=== PATIENT | female | born 2000 | race Two or more races ===

== ENCOUNTER 2024-05-07 11:55 | Inpatient (IN) | payer OTHER ==
[~2024-05-07] VITALS: Ht 175.3 cm; Wt 117.9 kg
[2024-05-07] MEDS ORDERED: ACID REDUCER20 M1 PO (12:36)
[2024-05-07] MEDS ORDERED: KETOROLAC TROMETHAMINE 30 MG VIAL IM STA (14:54)
[2024-05-07] MEDS ORDERED: CEFTRIAXONE SODIUM 1,000 MG VIAL IM STA (14:56)
[2024-05-07] MEDS ORDERED: KETOROLAC TROMETHAMINE 30 MG VIAL ONE (15:21)
[2024-05-07] MEDS ORDERED: CEFTRIAXONE SODIUM 1,000 MG VIAL ONE (15:22)
[2024-05-07 15:41] LABS: HEMATOCRIT 34.6 % (36.0-45.00); HEMOGLOBIN 10.9 g/dL (12.0-15.00); MEAN CORPUSCULAR HEMOGLOBIN 21.6 pg (27.00-32.0); MEAN CORPUSCULAR HGB CONC 31.4 g/dl (32.0-36.0); PLATELET COUNT 300 K/uL (150-450); RED BLOOD COUNT 5.03 M/uL (4.00-6.00); RED CELL DISTRIBUTION WIDTH 17.9 % (11.5-14.5)
[2024-05-07 16:38] LABS: MEAN CELL VOLUME 68.8 fL (80.00-100.00)
[2024-05-07 19:28] LABS: ALBUMIN 3.1 gm/dL (3.4-5.0); BILIRUBIN TOTAL 0.42 mg/dL (0.3-1.2); CREATININE SERUM 0.7 mg/dL (0.55-1.02); GFR 102.8; GLOBULINA 4.1 G/DL (2.4-3.5); POTASSIUM 3.88 mEq/L (3.5-5.1); TOTAL PROTEIN 7.2 gm/dL (6.4-8.2)
[2024-05-07] MEDS ORDERED: DIPHENHYDRAMINE HCL 50 MG/ML VIAL 1ML IV PRN (23:30)
[2024-05-07] MEDS ORDERED: KETOROLAC TROMETHAMINE 30 MG VIAL IU ONE (23:30)
[2024-05-07] MEDS ORDERED: ONDANSETRON HCL 4 MG in 0.9 % SODIUM CHLORIDE 50 ML IV PRN (23:30)
[2024-05-07] MEDS ORDERED: KETOROLAC TROMETHAMINE 15 MG VIAL IU PRN (23:30)
[2024-05-07] MEDS ORDERED: DEXAMETHASONE SODIUM PHOSPHATE 4 MG/ML VIAL IV ONE (23:30)
[2024-05-07] MEDS ORDERED: ACETAMINOPHEN 500 MG GEL..CAP PO PRN (23:30)
[2024-05-07] MEDS ORDERED: 0.9 % SODIUM CHLORIDE 1,000 ML IV SCH (23:30)
[2024-05-08] MEDS ORDERED: KETOROLAC TROMETHAMINE 30 MG VIAL ONE (00:43)
[2024-05-08] MEDS ORDERED: DEXAMETHASONE SODIUM PHOSPHATE 4 MG/ML VIAL ONE (00:43)
[2024-05-08 01:49] LABS: INR 1.02; PARTIAL THROMBOPLASTIN TIME 34.5 SECONDS (22.0-34.0); PROTHROMBIN TIME 11.1 SECONDS (9.0-11.5)
[2024-05-08 02:47] LABS: PH,URINE 6.5 (5.0-8.0); URINE APPEARANCE Clear; URINE BILIRRUBIN Negative (NEGATIVE); URINE BLOOD Negative; URINE COLOR Yellow; URINE GLUCOSE Negative (NEGATIVE); URINE KETONE Negative (NEGATIVE); URINE LEUKOCYTE Negative; URINE NITRATE Negative; URINE PROTEIN Negative (NEGATIVE); URINE UROBILINOGEN 0.2 E.U./dl
[2024-05-08 02:53] LABS: URINE BACTERIA 747.7 uL (0.0-1933); URINE EPITHELIAL CELLS 26.8 uL (0.0-38.8); URINE RBC 9.1 uL (0.0-20.8); URINE WBC 7.2 uL (0.0-23.2)
[2024-05-08 05:00] VITALS: BP 117/77; O2SAT 97
[2024-05-08 08:39] VITALS: BP 124/64
[2024-05-08] MEDS ORDERED: CEFTRIAXONE SODIUM 2,000 MG in 0.9 % SODIUM CHLORIDE 100 ML IV SCH (09:00)
[2024-05-08] MEDS ORDERED: FAMOTIDINE/PF 20 MG in 0.9 % SODIUM CHLORIDE 8 ML IV PUSH SCH (09:00)
[2024-05-08] MEDS ORDERED: KETOROLAC TROMETHAMINE 15 MG VIAL IV PRN (10:15)
[2024-05-08] MEDS ORDERED: ENOXAPARIN SODIUM 40 MG/0.4 ML SYRINGE SUBCUTANEO SCH (17:00)
[2024-05-08 21:32] VITALS: BP 119/71; O2SAT 97
[2024-05-09 01:54] VITALS: BP 117/53
[2024-05-09 06:16] LABS: HEMATOCRIT 31.8 % (36.0-45.00); HEMOGLOBIN 10.2 g/dL (12.0-15.00); MEAN CORPUSCULAR HEMOGLOBIN 22.2 pg (27.00-32.0); PLATELET COUNT 292 K/uL (150-450); RED BLOOD COUNT 4.59 M/uL (4.00-6.00); RED CELL DISTRIBUTION WIDTH 17.3 % (11.5-14.5)
[2024-05-09 06:23] LABS: MEAN CELL VOLUME 69.3 fL (80.00-100.00)
[2024-05-09 06:53] LABS: ALBUMIN 2.8 gm/dL (3.4-5.0); BILIRUBIN TOTAL 0.33 mg/dL (0.3-1.2); CALCIUM 8.6 mg/dL (8.5-10.1); CREATININE SERUM 0.66 mg/dL (0.55-1.02); GFR 110.03; GLOBULINA 3.4 G/DL (2.4-3.5); MAGNESIUM 2.1 mg/dL (1.8-2.4); PHOSPHOROUS 4.2 mg/dL (2.5-4.9); POTASSIUM 4.2 mEq/L (3.5-5.1); TOTAL PROTEIN 6.2 gm/dL (6.4-8.2)
[2024-05-09 06:54] LABS: C-REACTIVE PROTEIN 1.76 MG/DL (0.00-0.29)
[2024-05-09 08:57] VITALS: BP 123/80; BP 97/68
[2024-05-09 18:07] VITALS: BP 151/85; O2SAT 98
[2024-05-09] MEDS ORDERED: FAMOTIDINE/PF 20 MG in 0.9 % SODIUM CHLORIDE 8 ML IV PUSH SCH (21:00)
== END 2024-05-09 18:42 | disposition home or self-care (01) | DRG 153 ==
LOC: ER 11:57 → MEDJ 23:21
PROVIDERS: General Practice; Internal Medicine Infectious Disease; Preventive Medicine Public Health & General Preventive Medicine; ADMIT Student in an Organized Health Care Education/Training Program; ATTEND Student in an Organized Health Care Education/Training Program
PROC: BW2FYZZ Computerized Tomography (CT Scan) of Neck using Other Contrast (ICD-10-PCS; principal; 2024-05-07)
DX: J03.90 Acute tonsillitis, unspecified (principal); D64.9 Anemia, unspecified